=== PATIENT | female | born 1990 | race Caucasian/White ===

== ENCOUNTER 2017-03-01 21:13 | Emergency (ER) | payer MEDICAID ==
[~2017-03-01] VITALS: Ht 165.1 cm; Wt 101.5 kg
[2017-03-01] MEDS ORDERED: LEVE100020 PO (23:20)
[2017-03-02] MEDS ORDERED: ONDANSETRON 2MG/ML, 2ML IVPush ONE
[2017-03-02] MEDS ORDERED: KETOROLAC 30 MG/1 ML IVPush ONE
[2017-03-02] MEDS ORDERED: MORPHINE SULFATE 4 MG/ML, 1ML IVPush PRN
[2017-03-02 00:48] LABS: BLOOD UREA NITROGEN 11 mg/dL (7-18)
[2017-03-02 00:53] LABS: ASPARTATE AMINO TRANSFERASE 15 U/L (15-37)
[2017-03-02] MEDS ORDERED: KETOROLAC 30 MG/1 ML ONE (02:05)
[2017-03-02] MEDS ORDERED: ONDANSETRON 2MG/ML, 2ML ONE (02:05)
[2017-03-02] MEDS ORDERED: OMNIPAQUE 350 MG/ML, 100ML BOTTLE ONE (02:23)
[2017-03-02 03:19] VITALS: BP 132/78
== END 2017-03-02 03:26 | disposition home or self-care (01) ==
LOC: ED 03-02 03:20
DX: N83.292 Other ovarian cyst, left side (principal); N83.291 Other ovarian cyst, right side; I88.0 Nonspecific mesenteric lymphadenitis; G40.909 Epilepsy, unspecified, not intractable, without status epilepticus
CPT/HCPCS: 36415; 74177; 76830; 80053; 81003; 84703; 85025; 96374; 96375; 99285; J1885; J2405; Q9967

== ENCOUNTER → 2017-03-15 | Outpatient (CLI) | payer MEDICAID ==
[~2017-03-15] MED LIST: LEVE100020 PO
== END | disposition home or self-care (01) ==
LOC: RAD 05:08
PROVIDERS: ATTEND Psychiatry & Neurology Neurology
DX: R56.9 Unspecified convulsions (principal)
CPT/HCPCS: 70551; 95819

== ENCOUNTER 2018-06-06 09:46 | Emergency (ER) | payer MEDICAID ==
[~2018-06-06] VITALS: Ht 165.1 cm; Wt 102.0 kg
[2018-06-06 09:51] VITALS: BP 132/85
[2018-06-06] MEDS ORDERED: LAMO100T6 PO (09:55)
[2018-06-06] MEDS ORDERED: SODIUM CHLORIDE FLUSH 10ML SYR IVF ONE (10:30)
[2018-06-06 10:50] LABS: BASOPHILS # (AUTO) 0.07 x10^3/uL (0-0.1); BASOPHILS % (AUTO) 1 % (0-1); EOSINOPHILS # (AUTO) 0.13 x10^3/uL (0-0.4); EOSINOPHILS % (AUTO) 2 % (1-7); LYMPHOCYTES # (AUTO) 2.05 x10^3/uL (1-3.4); LYMPHOCYTES % (AUTO) 23 % (22-44); MD NO; MEAN CORPUSCULAR HEMOGLOBIN 28.2 pg (27.0-34.8); MEAN CORPUSCULAR HGB CONC 33.5 g/dL (32.4-35.8); MEAN PLATELET VOLUME 8.8 fL (7.4-10.4); MONOCYTES # (AUTO) 0.38 x10^3/uL (0.2-0.8); MONOCYTES % (AUTO) 4 % (2-9); NEUTROPHILS # (AUTO) 6.22 x10^3/uL (1.8-6.8); NEUTROPHILS % (AUTO) 70 % (42-75); PLATELET COUNT 301 x10^3/uL (130-400); RED CELL DISTRIBUTION WIDTH 13.3 % (9.6-15.2)
[2018-06-06 11:02] LABS: ALANINE AMINOTRANSFERASE 21 U/L (12-78); ALBUMIN 3.6 g/dL (3.4-5.0); ANION GAP 9 mmol/L (5-15); CALCIUM 8.7 mg/dL (8.5-10.1); CHLORIDE 107 mmol/L (98-107); CREATININE 0.72 mg/dL (0.55-1.02)
[2018-06-06 11:07] LABS: ALKALINE PHOSPHATASE 93 U/L (45-117); BILIRUBIN,TOTAL 0.6 mg/dL (0.2-1.0); TOTAL PROTEIN 7.8 g/dL (6.4-8.2)
== END 2018-06-06 11:59 | disposition home or self-care (01) ==
LOC: ED 11:53
DX: G40.309 Generalized idiopathic epilepsy and epileptic syndromes, not intractable, without status epilepticus (principal)
CPT/HCPCS: 36415; 80053; 80175; 84703; 85025; 99284

== ENCOUNTER 2019-03-15 12:38 | Outpatient (CLI) | payer MEDICAID ==
[~2019-03-15 12:38] MED LIST changes: +LAMO100T6 PO
== END 2019-03-15 23:59 | disposition home or self-care (01) ==
LOC: CARD 12:38
PROVIDERS: ATTEND Psychiatry & Neurology Neurology
DX: R56.9 Unspecified convulsions (principal)
CPT/HCPCS: 95819

== ENCOUNTER 2020-07-24 12:00 | Emergency (ER) | payer MEDICAID ==
[~2020-07-24] VITALS: Ht 165.1 cm; Wt 103.0 kg
[2020-07-24 12:10] VITALS: BP 149/89
[2020-07-24] MEDS ORDERED: LORazepam 1MG TABLET ONE (12:26)
[2020-07-24] MEDS ORDERED: LORazepam 1MG TABLET PO ONE (12:30)
--- NOTE | 2020-07-24 12:32 | NUR ---
PT IN HOSPITAL GOWN, ON VITALS AND CARDIAC MONITORS. PT MEDICATED FOR ANXIETY PER EMAR. PT MOTHER AT BEDSIDE. PT AWARE OF PLAN OF CARE. WILL CONTINUE TO MONITOR. SEIZURE PRECAUTIONS ARE ON GURNEY.
[2020-07-24 12:55] LABS: BASOPHILS % (AUTO) 1 % (0-1); EOSINOPHILS % (AUTO) 2 % (1-7); LYMPHOCYTES % (AUTO) 25 % (22-44); MEAN CORPUSCULAR HGB CONC 32.7 g/dL (32.4-35.8); MEAN PLATELET VOLUME 8.5 fL (7.4-10.4); MONOCYTES % (AUTO) 5 % (2-9); NEUTROPHILS % (AUTO) 67 % (42-75); PLATELET COUNT 291 x10^3/uL (130-400); RED BLOOD COUNT 4.83 x10^6/uL (3.82-5.3); RED CELL DISTRIBUTION WIDTH 13.1 % (9.6-15.2)
[2020-07-24 12:57] LABS: ALANINE AMINOTRANSFERASE 18 U/L (12-78); ANION GAP 4 mmol/L (5-15); CALCIUM 9.2 mg/dL (8.5-10.1); CHLORIDE 107 mmol/L (98-107); CREATININE 0.84 mg/dL (0.55-1.02)
[2020-07-24 12:59] LABS: ALKALINE PHOSPHATASE 84 U/L (45-117); BILIRUBIN,TOTAL 0.8 mg/dL (0.2-1.0); TOTAL PROTEIN 8.1 g/dL (6.4-8.2)
[2020-07-24 13:06] LABS: MD NO
[2020-07-24 13:37] LABS: MICROSCOPIC AUTO
[2020-07-24 13:49] LABS: AMPHETAMINE SCREEN, URINE Negative (Negative); BARBITURATE SCREEN, URINE Negative (Negative); BENZODIAZEPINE SCREEN, URINE Negative (Negative); CANNABINOID SCREEN, URINE Negative (Negative); COCAINE SCREEN, URINE Negative (Negative); METHADONE SCREEN, URINE Negative (Negative); OPIATE SCREEN, URINE Negative (Negative)
== END 2020-07-24 15:17 | disposition home or self-care (01) ==
LOC: ED 12:31
DX: G40.309 Generalized idiopathic epilepsy and epileptic syndromes, not intractable, without status epilepticus (principal); R55 Syncope and collapse
CPT/HCPCS: 36415; 70450; 80053; 80307; 81001; 85025; 87086; 93005; 99285

== ENCOUNTER 2021-05-27 11:43 | Emergency (ER) | payer MEDICAID ==
[~2021-05-27] VITALS: Ht 157.5 cm; Wt 112.2 kg
--- NOTE | 2021-05-27 14:35 | NUR ---
[employer] administrator note: Pt to room from lobby.
[2021-05-27 14:53] LABS: ANION GAP 8 mmol/L (5-15); CALCIUM 9.2 mg/dL (8.5-10.1); CHLORIDE 103 mmol/L (98-107)
[2021-05-27 14:56] LABS: BASOPHILS % (AUTO) 1 % (0-1); EOSINOPHILS % (AUTO) 2 % (1-7); LYMPHOCYTES % (AUTO) 25 % (22-44); MEAN CORPUSCULAR HEMOGLOBIN 28.3 pg (27.0-34.8); MEAN CORPUSCULAR HGB CONC 33.3 g/dL (32.4-35.8); MEAN PLATELET VOLUME 8.1 fL (7.4-10.4); MONOCYTES % (AUTO) 6 % (2-9); NEUTROPHILS % (AUTO) 66 % (42-75); PLATELET COUNT 302 x10^3/uL (130-400); RED BLOOD COUNT 4.59 x10^6/uL (3.82-5.3); RED CELL DISTRIBUTION WIDTH 13.2 % (9.6-15.2)
[2021-05-27 14:59] LABS: CREATININE 0.76 mg/dL (0.55-1.02)
--- NOTE | 2021-05-27 15:05 | NUR ---
PT TO US
[2021-05-27 15:16] LABS: MICROSCOPIC NOT IND
[2021-05-27 15:33] VITALS: BP 125/77
--- NOTE | 2021-05-27 15:33 | NUR ---
PT RETURNED FROM US, UPRIGHT ON GURNEY AWAKE & COMFORTABLE, RESPONDS APPROP TO STAFF, NAD, NO NEEDS AT THIS TIME, SO AT BS, CALL LIGHT WITHIN REACH.
--- NOTE | 2021-05-27 16:02 | NUR ---
PT TO CT
--- NOTE | 2021-05-27 16:14 | NUR ---
PT RETURNED FROM CT
[2021-05-27] MEDS ORDERED: OMNIPAQUE 350 MG/ML, 100ML BOTTLE ONE (16:25)
--- NOTE | 2021-05-27 17:05 | NUR ---
PT REMAINS UPRIGHT ON GURNEY AWAKE & COMFORTABLE, RESPONDS APPROP TO STAFF, NAD, NO NEEDS AT THIS TIME, SO AT BS, CALL LIGHT WITHIN REACH.
--- NOTE | 2021-05-27 17:56 | NUR ---
Patient & SO given discharge instructions and Rx, they have confirmed that they understand the instructions. Patient ambulatory with steady gait. NAD, all questions answered appropriately, denies additional needs at this time. No personal belongings left in room after discharge.
== END 2021-05-27 18:18 | disposition home or self-care (01) ==
LOC: ED 12:45
DX: L02.213 Cutaneous abscess of chest wall (principal); N91.2 Amenorrhea, unspecified
CPT/HCPCS: 36415; 71045; 71260; 76642; 76830; 80048; 81003; 84703; 85025; 99285; Q9967